=== PATIENT | female | born 1940 | race Two or more races ===

== ENCOUNTER 2021-11-10 05:00 | Day surgery (SDC) | payer OTHER ==
[~2021-11-10 05:00] MED LIST: ACID REDUCER20 M1 PO; DICLOFENAC-MIS1 EAC3 PO; LEVO-T75 MCG PO; ZOCOR40 MG PO; ZOLOFT50 MG PO
== END 2021-11-10 11:00 | disposition home or self-care (01) ==
LOC: AMB-ENDOS 05:00
PROVIDERS: ATTEND Colon & Rectal Surgery
DX: K63.5 Polyp of colon (principal); K57.30 Diverticulosis of large intestine without perforation or abscess without bleeding; Z88.6 Allergy status to analgesic agent; Z88.8 Allergy status to other drugs, medicaments and biological substances; Z91.011 Allergy to milk products; R15.9 Full incontinence of feces

== ENCOUNTER 2021-11-15 05:45 | Day surgery (SDC) | payer OTHER ==
[2021-11-23] MEDS ORDERED: FOLIC ACID0.8 M1 PO (14:42)
[2021-11-23] MEDS ORDERED: TRAZODONE HCL100 MG PO (14:42)
[2021-11-23] MEDS ORDERED: ABATINEX680 MG PO (14:43)
== END 2021-11-15 13:43 | disposition home or self-care (01) ==
LOC: CIR.AMB 05:45
PROVIDERS: ATTEND Colon & Rectal Surgery
DX: R15.9 Full incontinence of feces (principal); Z88.6 Allergy status to analgesic agent; Z91.040 Latex allergy status; Z91.011 Allergy to milk products; Z88.8 Allergy status to other drugs, medicaments and biological substances; E78.5 Hyperlipidemia, unspecified
CPT/HCPCS: 64561; 95972; C1778

== ENCOUNTER 2021-11-29 07:42 | Day surgery (SDC) | payer OTHER ==
[~2021-11-29 07:42] MED LIST changes: +ABATINEX680 MG PO; +FOLIC ACID0.8 M1 PO; +TRAZODONE HCL100 MG PO
== END 2021-11-29 11:50 | disposition home or self-care (01) ==
LOC: CIR.AMB 07:42
PROVIDERS: ATTEND Colon & Rectal Surgery
DX: R15.9 Full incontinence of feces (principal); R32 Unspecified urinary incontinence; Z20.822 Contact with and (suspected) exposure to COVID-19; Z88.6 Allergy status to analgesic agent; Z91.040 Latex allergy status; Z91.011 Allergy to milk products; E78.5 Hyperlipidemia, unspecified; M19.90 Unspecified osteoarthritis, unspecified site; F32.A Depression, unspecified; K57.30 Diverticulosis of large intestine without perforation or abscess without bleeding
CPT/HCPCS: 64590; 95971; C1767